=== PATIENT | female | born 1990 | race Caucasian/White ===

== ENCOUNTER 2017-06-26 08:01 | Emergency (ER) | payer SELFPAY ==
[~2017-06-26] VITALS: Ht 160 cm; Wt 57.2 kg
[2017-06-26 08:52] VITALS: BP 130/72
== END 2017-06-26 08:47 | disposition home or self-care (01) ==
LOC: FSED 08:01
DX: K59.00 Constipation, unspecified (principal)
CPT/HCPCS: 99282

== ENCOUNTER 2017-09-16 20:13 | Emergency (ER) | payer OTHER ==
[~2017-09-16] VITALS: Ht 160 cm; Wt 56.8 kg
--- OUTSIDE RECORDS SUMMARY | 2017-09-16 20:15 | XMS REPORT | Continuity of Care Document ---
Author Author [facility] Organization [facility] Address [address] [place] [address] Phone Unavailable Care Team Providers Care [employer]er [employer] Name Role Phone NO, PCP PCP Unavailable Advance Directives Directive Response Recorded Date/Time Does the patient have an advance directive? No 06/26/17 8:43am If yes, is advance directive on file with [facility]? No 06/26/17 8:43am If not on file with [facility] will patient provide a copy? No 06/26/17 8:43am Do you have a Directive to Physician? No 06/26/17 8:43am Do you have a Medical Power of Blind Cleaner? No 06/26/17 8:43am Do you have an out of hospital Do Not Resuscitate Order? No 06/26/17 8:43am Do you have any special needs we should be aware of? No 06/26/17 8:43am Do you have a support person here with you today? No 06/26/17 8:43am Did patient receive Notice of Privacy Practices? Yes 06/26/17 8:43am Did patient receive patient rights and responsibilities? Yes 06/26/17 8:43am Problems No problem information available. Medications No medication information available. Social History Smoking Status Start Date Stop Date Never Smoker Hospital Discharge Instructions No hospital discharge instruction information available. Plan of Care Discharge Date 06/26/17 8:47am Disposition HOME, SELF-CARE Condition at Discharge Stable Instructions/Education Provided Constipation - Adult Forms Provided Work/School Excuse Prescriptions See Medication Section Additional Instructions/Education Return to the closest emergency room if symptoms worsen Take medication as prescribed. Fill your prescription immediately after leaving the ER. Follow up with your primary care doctor tomorrow. Follow with your GI doctor this week. Functional Status No functional status information available. Allergies, Adverse Reactions, Alerts No known allergies. Immunizations No immunization information available. Vital Signs Acute Vital Signs Vital Response Date/Time Temperature (Fahrenheit) 97.8 degrees F (97.6 - 99.5) 06/26/2017 8:52am Pulse Pulse Rate (adult) 84 bpm (60 - 90) 06/26/2017 8:52am Respiratory Rate 16 bpm (12 - 24) 06/26/2017 8:52am Blood Pressure 130/72 mm Hg 06/26/2017 8:52am Height 5 ft 3 in 06/26/2017 8:08am Weight 126 lb 06/26/2017 8:08am Body Mass Index 22.3 kg/m^2 06/26/2017 8:08am Results No relevant diagnostic test, laboratory data and/or discharge summary information available. Procedures No procedure information available. Encounters Encounter Location Arrival/Admit Date Discharge/Depart Date Attending Provider Departed Emergency Room [facility] 06/26/17 8:01am 8:47am CRISTOFER ROGERS MD
[2017-09-16 21:53] VITALS: BP 110/61
== END 2017-09-16 21:51 | disposition home or self-care (01) ==
LOC: FSED 20:13
DX: R11.2 Nausea with vomiting, unspecified (principal); R19.7 Diarrhea, unspecified; K52.9 Noninfective gastroenteritis and colitis, unspecified
CPT/HCPCS: 81025; 87400; 99282

== ENCOUNTER 2017-09-17 11:58 | Emergency (ER) | payer OTHER ==
[~2017-09-17] VITALS: Ht 160 cm; Wt 56.7 kg
--- OUTSIDE RECORDS SUMMARY | 2017-09-17 12:00 | XMS REPORT | Continuity of Care Document ---
Author Author [facility] Organization [facility] Address [address] [place] [address] Phone Unavailable Care Team Providers Care Forensic Economist Name Role Phone NO, PCP PCP Unavailable Insurance Providers Guarantor Lynette Baker Demi Address [address] [place] [address] Email NONE Payer Self Pay Subscriber's Name Lynette Baker Relationship 18 Self / Same As Patient Group Name [employer] Advance Directives Directive Response Recorded Date/Time Does the patient have an advance directive? No 06/26/17 8:43am If yes, is advance directive on file with [facility]? No 06/26/17 8:43am If not on file with [facility] will patient provide a copy? No 06/26/17 8:43am Problems No problem information available. Medications No medication information available. Social History Smoking Status Start Date Stop Date Never Smoker Hospital Discharge Instructions No hospital discharge instruction information available. Plan of Care Discharge Date 09/16/17 9:51pm Disposition HOME, SELF-CARE Condition at Discharge Stable Instructions/Education Provided Viral Syndrome - Adult Forms Provided Work/School Excuse Prescriptions See Medication Section Functional Status No functional status information available. Allergies, Adverse Reactions, Alerts No known allergies. Immunizations No immunization information available. Vital Signs Acute Vital Signs Vital Response Date/Time Temperature (Fahrenheit) 97.9 degrees F (97.6 - 99.5) 09/16/2017 9:53pm Pulse Pulse Rate (adult) 67 bpm (60 - 90) 09/16/2017 9:53pm Respiratory Rate 18 bpm (12 - 24) 09/16/2017 9:53pm Blood Pressure 110/61 mm Hg 09/16/2017 9:53pm Height 5 ft 3 in 09/16/2017 8:30pm Weight 125.31 lb 09/16/2017 8:30pm Body Mass Index 22.2 kg/m^2 09/16/2017 8:30pm Results No relevant diagnostic test, laboratory data and/or discharge summary information available. Procedures No procedure information available. Encounters Encounter Location Arrival/Admit Date Discharge/Depart Date Attending Provider Departed Emergency Room [facility] 09/16/17 8:13pm 9:51pm KRISHNA BAUM MD Departed Emergency Room [facility] 06/26/17 8:01am 8:47am CRISTOFER ROGERS MD
[2017-09-17] MEDS ORDERED: PROMETHAZINE HCL (IM) 25 MG/ML VIAL IV STA (12:09)
[2017-09-17] MEDS ORDERED: SODIUM CHLORIDE 0.9% 1000ML 1,000 ML IV STA ×2 (12:09→12:23)
[2017-09-17] MEDS ORDERED: SODIUM CHLORIDE 0.9% 50ML 50 ML ONE ×2 (12:14→18:41)
[2017-09-17] MEDS ORDERED: MORPHINE SULFATE 4 MG/ML SYR IV STA (12:16)
[2017-09-17] MEDS ORDERED: PANTOPRAZOLE 40 MG 10ML VIAL IV STA (12:16)
[2017-09-17 12:17] LABS: BASOPHILS # (AUTO) 0.1 (0.0-0.1); BASOPHILS % 0.3 % (0.0-1.0); EOSINOPHILS % 0.1 % (0.0-6.0); HEMATOCRIT 45.2 % (34.2-44.1); HEMOGLOBIN 15.7 g/dL (12.0-16.0); LYMPHOCYTES # (AUTO) 1.8 (1.0-3.2); LYMPHOCYTES % 7.7 % (18.0-39.1); MEAN CORPUSCULAR HEMOGLOBIN 31.5 pg (28-32); MEAN CORPUSCULAR HGB CONC 34.7 g/dL (31-35); MEAN CORPUSCULAR VOLUME 90.6 fL (81-99); MONOCYTES # (AUTO) 1.2 (0.2-0.8); MONOCYTES % 5.2 % (4.4-11.3); NEUTROPHILS # (AUTO) 19.7 (2.1-6.9); NEUTROPHILS % 86.2 % (38.7-80.0); PLATELET COUNT 224 x10e3/uL (140-360); RED BLOOD COUNT 4.99 x10e6/uL (3.6-5.1); RED CELL DISTRIBUTION WIDTH 11.9 % (11.7-14.4)
[2017-09-17 12:21] LABS: CLARITY,URINE SL CLOUDY (CLEAR); COLOR,URINE YELLOW (YELLOW)
[2017-09-17 12:22] LABS: BILIRUBIN,URINE NEGATIVE (NEGATIVE); KETONES,URINE TRACE (NEGATIVE); LEUKOCYTE ESTERASE ,URINE 1+ (NEGATIVE); NITRITE,URINE NEGATIVE (NEGATIVE); PROTEIN,URINE DIPSTICK 2+ (NEGATIVE); URINE UROBILINOGEN 0.2 mg/dL (0.2 - 1)
[2017-09-17] MEDS ORDERED: MORPHINE SULFATE 2 MG/ML SYR ONE (12:22)
[2017-09-17 12:24] LABS: AMORPHOUS SEDIMENT,URINE FEW (FEW); BACTERIA,URINE MODERATE /HPF; EPITHELIAL CELLS,URINE MODERATE /LPF; MUCUS,URINE FEW (RARE)
[2017-09-17 12:39] LABS: ALANINE AMINOTRANSFERASE 18 IU/L (0-55); ALBUMIN 5.1 g/dL (3.5-5.0); ALBUMIN/GLOBULIN RATIO 1.4 (0.8-2.0); ALKALINE PHOSPHATASE 69 IU/L (40-150); AMYLASE 55 U/L (25-125); ANION GAP 18.4 mmol/L (8-16); BLOOD UREA NITROGEN 12 mg/dL (7-26); BUN/CREATININE RATIO 12 (6-25); CALCIUM 10.5 mg/dL (8.4-10.2); CARBON DIOXIDE 19 mmol/L (22-29); CHLORIDE 105 mmol/L (98-107); CREATININE, SERUM 0.99 mg/dL (0.57-1.11); EST GLOMERULAR FILTRATION RATE > 60 ML/MIN (60-); GLUCOSE 135 mg/dL (74-118); LIPASE 32 U/L (8-78); POTASSIUM 3.4 mmol/L (3.5-5.1); SODIUM 139 mmol/L (136-145)
[2017-09-17 13:06] LABS: BAND NEUTROPHILS % (MANUAL) 1 %; LYMPHOCYTES % (MANUAL) 8 % (19-48); MONOCYTES % (MANUAL) 6 % (3.4-9.0); NEUTROPHILS % (MANUAL) 83 % (40-74); PLATELET ESTIMATE ADEQUATE; PLATELET MORPHOLOGY COMMENT NORMAL; RBC MORPHOLOGY COMMENT NORMAL
--- NOTE | 2017-09-17 13:36 | Diagnostic Imaging Report ---
EXAM: CT Abdomen and Pelvis WITH contrast INDICATION: \S\n/v/d \[id number] \S\[id number] COMPARISON: None. TECHNIQUE: Abdomen and pelvis were scanned utilizing a multidetector helical scanner from the lung base to the pubic symphysis after administration of IV contrast. Coronal and sagittal reformations were obtained. Routine protocol was performed. Scan was performed when during portal venous phase. IV CONTRAST: 100 mL of Isovue-370 ORAL CONTRAST: Water COMPLICATIONS: None RADIATION DOSE: Total DLP: 202.6 mGy*cm Estimated effective dose: (DLP x 0.015 x size factor) mSv CTDIvol has been reviewed. It is below the limits set by the Radiation Protocol Committee (RPC). FINDINGS: LINES and TUBES: None. LOWER THORAX: Unremarkable HEPATOBILIARY: No focal hepatic lesions. No biliary ductal dilation. GALLBLADDER: No radio-opaque stones or sludge. No wall thickening. SPLEEN: No splenomegaly. PANCREAS: No focal masses or ductal dilatation. ADRENALS: No adrenal nodules KIDNEYS/URETERS: Kidneys enhance symmetrically. No hydronephrosis. No cystic or solid mass lesions. No stones. GI TRACT: No abnormal distention or evidence of bowel obstruction. Pancolonic mucosal hyperenhancement and mild wall thickening. Appendectomy. PELVIC ORGANS/BLADDER: Left ovarian 2.3 cm corpus luteum. Otherwise, unremarkable. LYMPH NODES: No lymphadenopathy. VESSELS: Unremarkable. PERITONEUM / RETROPERITONEUM: Trace free fluid in the pelvis. No free air. BONES: Unremarkable. SOFT TISSUES: Unremarkable. IMPRESSION: Diffuse mild colitis, likely infectious or inflammatory. No evidence of bowel obstruction. Signed by: DR. Haider Castaneda MD on 09/17/2017 1:33 PM
[2017-09-17] MEDS ORDERED: CEFTRIAXONE SOD 1 GM VIAL IV ONE (14:00)
[2017-09-17] MEDS ORDERED: DONNATAL/LIDOCAINE/MAALOX 30 ML SUSP PO ONE (15:00)
[2017-09-17 15:45] VITALS: BP 109/60
[2017-09-17] MEDS ORDERED: IOPAMIDOL 370 MG/ML 200 ML INFUS..BTL INJ ONE (18:42)
== END 2017-09-17 16:00 | disposition home or self-care (01) ==
LOC: ER 11:58
DX: R10.13 Epigastric pain (principal); R11.2 Nausea with vomiting, unspecified; R19.7 Diarrhea, unspecified; N39.0 Urinary tract infection, site not specified; K52.9 Noninfective gastroenteritis and colitis, unspecified
CPT/HCPCS: 99284; J0696; J2270; J2550; J7030; Q9967